=== PATIENT | female | born 2005 | race Hispanic/Latino ===

== ENCOUNTER 2025-08-04 18:47 | Emergency (ER) | payer MEDICAID ==
[~2025-08-04] VITALS: Ht 160 cm; Wt 57.2 kg
--- NOTE | 2025-08-04 18:57 | ERN ---
ED Note History of Present Illness Stated Complaint: FOOT PAIN Chief Complaint: Lower Extremity Pain/Injury Time Seen by MD: 18:54 Dictation: PATIENT IS A 19-YEAR-OLD FEMALE HERE WITH COMPLAINTS OF LEFT FOOT PAIN AND ECCHYMOSIS AFTER SHE DROPPED THE THANKSGIVING TURKEY ON HER FOOT COMING OUT OF THE OVEN. NO NAUSEA NO VOMITING. SHE HAS NOT TAKEN ANYTHING PRIOR Allergies: Coded Allergies: No Known Drug Allergies (Unverified Allergy, Unknown, 08/04/25) Past Medical History Past Medical History: No Pertinent History Surgical History: None LMP: Jul 07, 2025 RN Note Reviewed/Agreed w/PFSH: Yes Review of System Dictation CONSTITUTIONAL: NEGATIVE EXCEPT FOR HPI HEAD/FACE: NEGATIVE EXCEPT FOR HPI EENT: NEGATIVE EXCEPT FOR HPI RESPIRATORY: NEGATIVE EXCEPT FOR HPI GASTROINTESTINAL/ABDOMINAL: NEGATIVE EXCEPT FOR HPI GENITOURINARY: NEGATIVE EXCEPT FOR HPI MUSCULOSKELETAL: NEGATIVE EXCEPT FOR HPI LEFT FOOT PAIN INTEGUMENTARY: NEGATIVE EXCEPT FOR HPI NEUROLOGICAL/PSYCH: NEGATIVE EXCEPT FOR HPI HEMATOLOGIC/LYMPHATIC: NEGATIVE EXCEPT FOR HPI ALL SYSTEMS NEGATIVE, EXCEPT NOTED ABOVE. 13 POINT REVIEW OF SYSTEMS ASSESSED AND ALL NEGATIVE EXCEPT FOR ABOVE. Initial Vital Sign VS Vital Signs Date Time Temp Pulse Resp B/P (MAP) Pulse Ox O2 Delivery O2 Flow Rate FiO2 08/04/25 18:48 97.9 69 20 109/66 100 Physical Exam Dictation VITAL SIGNS REVIEWED GENERAL APPEARANCE: ALERT, ORIENTED X 3, MODERATE ACUTE DISTRESS, WELL DEVELOP ED, NOURISHED. HEAD AND FACE: NON-TRAUMATIC. EYES: PERRL, PINK CONJUNCTIVAS, EYELID NO TRAUMA, ANTERIOR CHAMBER WITH ARCUS SENILIS. EARS: PINNAS INTACT AND NO SIGNS OF TRAUMA OR ERYTHEMA EAR CANALS CLEAR AND NO DISCHARGE TM NO ERYTHEMA NOSE: NO DISCHARGE, NO BLEEDING. OROPHARYNX: MOUTH NORMAL, TONGUE PINK, PHARYNX CLEAR,NO ERYTHEMA, TONSILS NO EXUDATES, NO ABSCESSES NOTED, MUCOUS MEMBRANE MOIST NECK: SUPPLE, NON-TENDER, NO THYROMEGALY, NO MASSES, NO JVD, NO BRUITS BREAST:DEFERRED CHEST:NO TENDERNESS, NO CREPITUS, NO PARADOXICAL MOVEMENT, NO RETRACTIONS LUNGS:CLEAR, WELL-VENTILATED, SYMMETRIC, NO RALES, NO WHEEZING, NO RHONCHI, NO STRIDOR, GOOD BREATH SOUNDS BILATERALLY HEART: REGULAR RATE, REGULAR RHYTHM, NO MURMUR, NO GALLOPS VASCULAR: NO PERIPHERAL EDEMA, ABDOMEN: SOFT, POSITIVE BOWEL SOUNDS, NONDISTENDED, NO GUARDING, NONTENDER, NO REBOUND, NO MASSES NO HEPATOMEGALY, NO SPLENOMEGALY, NO HUBBARD'S SIGN, NO HERNIAS. RECTAL: DEFERRED GENITAL: DEFERRED NEUROLOGICAL: NORMAL SPEECH, MOTOR FUNCTION INTACT, SENSORY FUNCTION INTACT MUSCULOSKELETAL: NECK NONTENDER, FULL RANGE OF MOTION, BACK NONTENDER, FULL RANGE OF MOTION, EXTREMITIES: LEFT 1ST METATARSAL JOINT PAIN SWELLING WITH A ECCHYMOSIS. SKIN: COLOR PINK, DRY, NO TURGOR, NO RASH, NO LACERATIONS, NO ABRASIONS, NO CONTUSIONS. LYMPHATIC: DEFERRED Results (Laboratory/Radiology) Laboratory/Radiology LEFT FOOT X-RAY NEGATIVE FOR FRACTURE Labs Reviewed?: Yes ED Course ED Course Orders Procedure Category Date Status Time Foot Comp 3+Vws Lt RAD 08/04/25 Taken 18:55 Acetaminophen With PHA 08/04/25 In Process Codeine (Tylenol-Code 19:00 Current Medications Medications (Trade) Dose Ordered Sig/[place] Route PRN Reason Start Time Stop Time Status Last Admin Dose Admin Acetaminophen/ Codeine Phosphate (TYLenol-coDEINE TAB) 2 tab ONCE PO 08/04/25 19:00 08/04/25 23:30 08/04/25 19:25 Vital Signs Date Time Temp Pulse Resp B/P (MAP) Pulse Ox O2 Delivery O2 Flow Rate FiO2 08/04/25 18:48 97.9 69 20 109/66 100 1935/LEFT FOOT X-RAY NEGATIVE. PATIENT WILL BE PROVIDED CRUTCHES FOR CONTUSION OF LEFT FOOT IBUPROFEN WE WILL BE PRESCRIBED AND PATIENT WILL BE TOLD TO FOLLOW UP WITH HER DOCTOR IN THE NEXT 2-3 DAYS. Medical Decision Making MDM MEDICAL DECISION-MAKING BASED ON EMPIRIC TREATMENT FOR ACUTE FOOT PAIN AND X-RAY DUE TO BLUNT TRAUMA LEFT FOOT X-RAY NEGATIVE PATIENT DISCHARGED HOME WITH CRUTCHES FOR NO WEIGHT-BEARING FOR THE NEXT48 HOURS RICE PRINCIPLES IBUPROFEN FOR PAIN SEE YOUR PRIMARY CARE DOCTOR DX & DISP Disposition: Discharge Departure Impression: Primary Impression: Contusion of left foot, initial encounter Additional Impression: Blunt trauma Condition: Stable Scripts Ibuprofen (Ibuprofen 800 mg Tab) 800 Mg Tab 800 MG PO Q8H PRN for fever or pain, #30 TAB 0 Refills Prov: RAFI WILSON 08/04/25 Additional Instructions: FOLLOW-UP WITH PRIMARY CARE PROVIDER IN 1 TO 2 DAYS. TAKE MEDICATIONS DIRECTED HERE IN THE EMERGENCY ROOM. OKAY TO CONTINUE HOME MEDICATIONS UNLESS OTHERWISE DISCUSSED DURING YOUR VISIT IN THE EMERGENCY ROOM TODAY. RETURN TO YOUR NEAREST EMERGENCY ROOM IF SYMPTOMS WORSEN OR IF THERE IS NO IMPROVEMENT. CALL 911 IF YOU NEED IMMEDIATE ASSISTANCE. TAKE TYLENOL OR MOTRIN [id number] NEEDED AND IF NO CONTRAINDICATIONS ARE PRESENT. INCREASE ORAL HYDRATION. A WOUND CULTURE OR URINE CULTURE WAS ORDERED HERE IN THE EMERGENCY ROOM DEPARTMENT PLEASE FOLLOW-UP WITH PRIMARY CARE PROVIDER AND ADVISE THEM TO GET REPEAT PORTS FROM OUR FACILITY. IF YOU HAD ANY GERRY WRAP/SPLINTS THAT WERE APPLIED HERE, PLEASE DO NOT REMOVE THEM UNTIL YOU SEE YOUR PRIMARY CARE OR SPECIALTY. TAKE IBUPROFEN NEEDED FOR PAIN WITH FOOD. COOL COMPRESSES TO PAIN THREE TO 4 TIMES A DAY. SEE YOUR PRIMARY CARE FOR DOCTOR FOR FOLLOW UP IN 1-2 DAYS RAFI WILSON OUTPATIENT PHLEBOTOMIST Aug 04, 2025 18:57
[2025-08-04] MEDS ORDERED: IBUP-2077 PO (19:37)
--- NOTE | 2025-08-04 19:44 | NUR ---
PATIENT PROVIDED WITH CRUTCHES, TOLERATED WELL
--- NOTE | 2025-08-04 19:48 | HMCIMG ---
EXAM: CR right foot, 3 View. CLINICAL HISTORY: LEFT 1ST METATARSAL JOINT PAIN ECCHYMOSIS AFTER TRAUMA COMPARISON: None provided. FINDINGS: BONES: No acute fracture or aggressive appearing osseous lesion. JOINTS: The joint spaces appear within normal limits. No dislocation. SOFT TISSUES: The soft tissues are unremarkable. IMPRESSION: No acute osseous abnormality. /[place]
[2025-08-04 19:50] VITALS: BP 107/66; PULSE 87; RESP 18; TEMP 98.6; O2SAT 99
== END 2025-08-04 19:53 | disposition home or self-care (01) ==
LOC: EDH 18:47
DX: S90.32XA Contusion of left foot, initial encounter (principal); W22.8XXA Striking against or struck by other objects, initial encounter; Y93.89 Activity, other specified; Y92.89 Other specified places as the place of occurrence of the external cause; Y99.8 Other external cause status
CPT/HCPCS: 73630; 99283